=== PATIENT | male | born 2000 | race Caucasian/White ===

== ENCOUNTER 2022-08-28 00:27 | Emergency (ER) | payer OTHER, MEDICAID ==
[~2022-08-28] VITALS: Ht 175.3 cm; Wt 103.5 kg
[2022-08-28] MEDS ORDERED: ONDANSETRON HCL 4MG/2ML INJ IV STA (01:02)
[2022-08-28] MEDS ORDERED: SODIUM CHLORIDE 0.9% 1,000 ML IV ONE (01:15)
[2022-08-28 01:18] LABS: HEMATOCRIT. 42.5 % (42.0-52.0); HEMOGLOBIN. 14.2 g/dL (14.0-18.0); MEAN CORPUSCULAR HEMOGLOBIN 28.9 pg (28.0-32.0); MEAN CORPUSCULAR VOLUME 86.3 fL (80.0-94.0); MEAN PLATELET VOLUME 8.4 fl (7.4-10.4); PLATELET 272 x1000/uL (130-400); RED BLOOD CELL COUNT 4.92 mill/uL (4.7-6.1)
[2022-08-28 01:26] LABS: CHLORIDE 103 mEq/L (98-107)
[2022-08-28 02:27] LABS: PLATELET ESTIMATE NORMAL
[2022-08-28] MEDS ORDERED: IBUP-2029 MT (02:59)
[2022-08-28] MEDS ORDERED: ONDA4TAB50 MT (02:59)
[2022-08-28 03:13] VITALS: BP 111/66
== END 2022-08-28 03:14 | disposition home or self-care (01) ==
LOC: ER 00:46
DX: R11.2 Nausea with vomiting, unspecified (principal); R19.7 Diarrhea, unspecified; M79.18 Myalgia, other site; R53.1 Weakness; Z20.822 Contact with and (suspected) exposure to COVID-19
CPT/HCPCS: 36415; 71045; 80053; 85025; 87426; 96361; 96374; 99291; C9803; J2405; J7030